=== PATIENT | female | born 1990 ===

== ENCOUNTER 2025-02-06 10:21 | Outpatient (AMB) | payer OTHER, SELFPAY ==
--- NOTE | 2025-02-06 10:26 | MHC.PC.OV ---
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 Accompanied by: Self / Same As Patient Allergies No Known Allergies Allergy (Verified 02/06/25 10:46) Tobacco use date assessed: 02/06/25 Dental Screening Dental Screen Date: 02/06/25 Did you have a dental visit in the last 12 months?: Yes Did you have a dental problem in the last 6 months where you did not have access to dental care?: No Was dental information given to patient?: Patient has dentist HPI establish care HPI Details [facility] PCP:[facility] Last visit: 2022 Last PE: 2022 Specialist: PRISCILA, was seeing mental health counselor O[facility]YN: [facility] Past medical history: Endometriosis, depression and anxiety Medications: IUD Family HX: Problem: The patient is a 34-year-old female presenting with right hip pain. The right hip pain has been present for approximately two to three months, coinciding with cessation of gym activities and a back injury. The pain is described as an ache and a dull burn, sometimes radiating to the mid-hamstring area. The patient works at [employer], involving frequent lifting, which may contribute to the pain. The patient has a history of endometriosis, depression, and anxiety, with intermittent counseling for mental health issues. She has not seen a therapist or psychologist in years but plans to reconnect with a previous counselor. The patient reports constipation, which occurs sporadically and is sometimes associated with pain during bowel movements. She has not seen a traffic maintenance officer since childhood, despite a history of polyps and lactose intolerance. Pain in mid abdomen just below umbilicus with palpation. There is a significant family history of colon cancer on the paternal side, with her father, aunt, and uncle affected. Her father was diagnosed with aggressive genetic cancer, and her grandfather of esophageal cancer. Her father passed at age 54 with colon cancer. The patient also experiences ear discomfort, characterized by itching and scabbing, with recent wax buildup. [facility] Medical History Endometriosis Depression Anxiety Surgical History Status post laparoscopic surgery Family History Mother Age: 61 Diabetes High cholesterol Fatty liver Arthritis Father Hypertension Colon cancer Social History Household Members: Spouse Housing: House Alcohol intake: current Patient Tobacco Use Status: Never used Tobacco e-Cigarette/Vaping Use: Never Used service: No Current occupational status: employed Current occupation: [employer] Cognitive needs: No Hearing needs: No Vision needs: No Questionnaire PHQ-9 Over the last 2 weeks, how often have you been bothered by any of the following problems? 1. Little interest or pleasure in doing things: not at all 2. Feeling down, depressed, or hopeless: several days 3. Trouble falling or staying asleep, or sleeping too much: several days 4. Feeling tired or having little energy: several days 5. Poor appetite or overeating: not at all 6. Feeling bad about yourself - or that you are a failure or have let yourself or your family down: not at all 7. Trouble concentrating on things, such as reading the newspaper or watching television: several days 8. Moving or speaking so slowly that other people could have noticed. Or the opposite - being so fidgety or restless that you have been moving around a lot more than usual: not at all 9. Thoughts that you would be better off or of hurting yourself in some way: several days Total score: 5 Depression Screening Interpretation: Positive Depression Screening Done: Yes 75027 - PHQ-9 Billing: Yes Source: Developed by Drs. Mervin Gomez, Evelina Alcaraz, Néstor Khan and colleagues, with an educational hang from [employer]. Thrive Questionnaire Date Thrive assessed: 02/06/25 I am a: Patient What is your living situation today?: I have a steady place to live Within the past 12 months, did the food you bought not last and you didn't have the money to get more?: Sometimes True Within the past 12 months, did you worry whether your food would run out before you got money to buy more?: Sometimes True Do you have trouble paying for medicines?: No Do you have trouble getting transportation to medical appointments?: No Do you have trouble paying your heating and electricity bill?: No Do you have trouble taking care of your child, family member or friend?: No Do you have trouble with day-to-day activities such as bathing, preparing meals, shopping, managing finances, etc.?: No Are you currently unemployed and looking for a job?: No Are you interested in more education?: Yes Please select the resources that you would like help with: None Currently or been in a relationship where the following occur: I choose not to answer THRIVE Score: 2 AUDIT C Alcohol Use Questionnaire (AUDIT-C) 1. How often do you have a drink containing alcohol?: Monthly or less 2. How many drinks containing alcohol do you have on a typical day when you are drinking?: 1 or 2 3. How often do you have six or more drinks on one occasion?: Never Total Score: 1 ADELAIDE-7 AMB Questionnaire ADELAIDE-7 Date ADELAIDE - 7 assessed: 02/06/25 Feeling nervous, anxious, or on edge: 1 = Several days Not being able to stop or control worryin = Several days Worrying too much about different things: 2 = More than half the days Trouble relaxin = Several days Being so restless that it is hard to sit still: 0 = Not at all Becoming easily annoyed or irritable: 1 = Several days Feeling afraid as if something awful might happen: 1 = Several days Total ADELAIDE-7 score (0-4 normal; 5-9 mild; 10-14 moderate; 15-21 severe): 7 Source: Developed by Drs. Mervin Gomez, Evelina Alcaraz, Néstor Khan and colleagues, with an educational hang from [employer]. ADELAIDE-7 Assessment Billing ADELAIDE-7 Assessment Tool: ADELAIDE-7 Assessment 70856 Review of Systems Const Denies headache(s) Eyes Denies loss of vision ENT Denies vertigo, Denies dizziness, Denies headache(s), Denies sore throat and Reports other (Left ear itchiness and recurrent cerumen buildup) Card Denies chest pain, Denies leg edema, Denies lightheadedness and Reports dyspnea (Associated with fumes at work) Resp Denies cough, Denies hemoptysis, Reports dyspnea (Associated with fumes at work) and Denies wheezing GI Denies abdominal pain, Denies melena, Reports constipation (Sporadic), Denies diarrhea, Denies vomiting and Reports other (Anal pain intermittently) Denies urinary frequency, Denies dysuria and Denies urinary urgency Musc Reports arthralgias (right hip), Denies joint swelling, Denies numbness, Reports radiating pain into limb (posterior leg) and Denies tingling Neuro Denies Abnormal speech present, Denies behavioral changes, Denies vertigo, Denies dizziness, Denies headache(s), Denies loss of vision, Denies memory loss, Denies numbness and Denies tingling Psych Reports anxiety, Denies behavioral changes, Reports depression, Denies memory loss and Denies panic attacks Mateo/Lymph Denies easy bleeding and Denies easy bruising Aller/Immun Denies wheezing Physical exam (Primary Care) Vital Signs: Last Vital Signs Temp 97.5 F 02/06/25 10:27 Pulse 77 02/06/25 10:27 Resp 18 02/06/25 10:27 BP 90/62 02/06/25 10:27 Pulse Ox 98 02/06/25 10:27 Oxygen Delivery Method Room Air 02/06/25 10:27 BMI result Body Mass Index 23.9 Tobacco/Smoking Status: Tobacco use Status Tobacco use date assessed 02/06/25 02/06/25 10:38 Patient Tobacco Use Status Never used Tobacco 02/06/25 10:38 e-Cigarette/Vaping Use Never Used 02/06/25 10:38 PHQ-9: PHQ-9 Score PHQ-9: Total score 5 02/06/25 13:25 Depression Screening Interpretation: Positive Thrive Assessment: Date of Thrive Assessment Date Thrive assessed 02/06/25 02/06/25 10:38 Currently or been in a relationship where the following occur: I choose not to answer Const General: healthy appearing, no acute distress, alert and awake Nutritional Appearance: well nourished Orientation/consciousness: oriented to person, oriented to place and oriented to time HENMT Ears: TM's normal bilaterally General nose exam: Normal nasal mucous membranes and turbinates present Eyes Conjunctivae: conjunctivae normal Sclerae: sclerae normal Pupils: Equal, round and reactive pupils present Neck Neck: Yes no lymphadenopathy and Yes no JVD Thyroid: Thyroid normal Carotids: no bruits Resp Effort & Inspection: normal respiratory effort and not tachypneic Auscultation: no crackles, no rales, no rhonchi and no wheezes Cardio Rate: regular rate Rhythm: regular rhythm Heart sounds: no murmurs and normal S1 and S2 GI Palpation (GI): Soft to palpation, Tenderness to palpation present (GI) periumbilically, no hepatomegaly and no splenomegaly Auscultation: normal bowel sounds General: Yes no CVA tenderness Back/Spine/Pelvis Back: no CVA tenderness Skin General skin exam: dry skin Neuro General: oriented to person, oriented to place and oriented to time Cranial nerves: Yes Equal, round and reactive pupils present Speech: No Abnormal speech present Gait exam (Neuro): Normal gait present Motor exam (neuro): no tremor noted Extrem Right upper extremity: full ROM Left upper extremity: full ROM Right lower extremity: full ROM and hip/thigh Details: no tenderness and no swelling; no edema Left lower extremity: full ROM; no edema Psych Mental Status: mental status grossly normal Speech and movement: Normal speech and movement present Affect: normal affect Attitude: cooperative Thought process: Normal thought process present Coding Level of Care Code New Pt Level 4 (22381) Diagnoses Right hip pain M25.551 Constipation, unspecified constipation type K59.00 Constipation type: unspecified constipation type Abdominal pain, unspecified abdominal location R10.9 Abdominal location: unspecified location Dyspnea, unspecified type R06.00 Dyspnea type: unspecified Anxiety and depression F41.9; F32.A Excessive cerumen in left ear canal H61.22 Additional Codes ADELAIDE-7 Assessment Billing - ADELAIDE-7 Assessment Tool: ADELAIDE-7 Assessment 00749 ([id number]) PHQ-9 - 57429 - PHQ-9 Billing: Yes ([id number]) Time Spent (min) 41 Assessment & Plan Assessment & Plan (1) Right hip pain: Code(s): M25.551 - Pain in right hip Category: Medical Plan: Right hip pain that radiates to posterior leg down to the hamstring. Reports hx of needing alignment. Will refer the patient to PT (2) Constipation: Code(s): K59.00 - Constipation, unspecified Category: Medical Qualifiers: Constipation type: unspecified constipation type Qualified Code(s): K59.00 - Constipation, unspecified Plan: Reports sporadic constipation. Encouraged increasing fluids and fiber in the diet. Reports going drinking 2-3 16 oz bottles of water. 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 She works at [employer] and they vasquez the car indoors and even after turning off the cars she could still smell the fumes. Other andersen, she does not get sob, encouraged avoiding irritants. (5) Anxiety and depression: Code(s): F41.9 - Anxiety disorder, unspecified; F32.A - Depression, unspecified Category: Medical Plan: Reports that she had a counselor and is in the process of getting a new one. Denies si/hi (6) Excessive cerumen in left ear canal: Code(s): H61.22 - Impacted cerumen, left ear Category: Medical Plan: The patient will start using debrox ear drops and schedule appt for ear flushing Orders: Orders UA CC w/rflx Micro + Cult Today Z00.00 - Encounter for general adult medical examination without abnormal findings CRP High Sensitivity Today Z00.00 - Encounter for general adult medical examination without abnormal findings PT Evaluation and Treatment Today M25.551 - Pain in right hip Complete Blood Count Auto Diff Today Z00.00 - Encounter for general adult medical examination without abnormal findings Comprehensive [place]. Panel Fast Today Z00.00 - Encounter for general adult medical examination without abnormal findings Lipid Panel Today Z00.00 - Encounter for general adult medical examination without abnormal findings TSH reflex Free T4 Today Z00.00 - Encounter for general adult medical examination without abnormal findings Vitamin D 25-OH Total Today Z00.00 - Encounter for general adult medical examination without abnormal findings Erythrocyte Sedimentation Rate Today Z00.00 - Encounter for general adult medical examination without abnormal findings US abdomen complete Today K59.00 - Constipation, unspecified, K62.89 - Other specified diseases of anus and rectum, R10.9 - Unspecified abdominal pain, Z80.0 - Family history of malignant neoplasm of digestive organs Referrals Gastroenterology Referral K59.00 - Constipation, unspecified, K62.89 - Other specified diseases of anus and rectum, R10.9 - Unspecified abdominal pain, Z80.0 - Family history of malignant neoplasm of digestive organs
[2025-02-06 10:27] VITALS: BP 90/62; PULSE 77; RESP 18; TEMP 36.4; O2SAT 98; BMI 23.9
--- OUTSIDE RECORDS SUMMARY | 2025-02-06 13:33 | XMS_ITS ---
Author Name [facility] Organization Unknown Results Test Name/Text Value Interpretation Date Range Source T.PALLIDUM AB Negative Normal 03/06/2024 - [facility] MM HEPATITIS C ANTIBODY NONREACTIVE Normal 02/29/2024 - [facility] HIV AB/P24 AG REFLEX W.BLOT Non Reactive [facility] W/CONFIRM NONREACTIVE Normal 024 - [facility] C TRACHOMATIS SWAB NEGATIVE Normal 02/26/2024 - [facility] N GONORRHOEAE SWAB NEGATIVE Normal 02/26/2024 - [facility] Problems Problem Status Onset Date Problem Type Date of Resoluti on Source Trapezius muscle spasm active EncounterDiagnosisAct CCT Encounters Encounter Type Encounter Reason Primary Diagnosis Location Date Ambulatory [facility] 02/29/2024 Ambulatory [facility] 02/25/2024 Ambulatory Neck Pain [facility] 09/20/2023 Care Team Organization Name Specialty Phone Email Start Date End Da te [facility] No provided Primary Care 03/14/2024 [facility] provided,No Primary Care 03/02/2024 06/02/2024 [facility] No provided Primary Care 02/29/2024 [facility] provided,No Primary Care 02/26/2024 06/24/2024 [facility] 09/20/2023 08/09/2024 [facility] 09/20/2023
== END 2025-02-06 11:33 | disposition home or self-care (01) ==
LOC: HO.HMCH 10:23
DX: M25.551 Pain in right hip (principal); K59.00 Constipation, unspecified; R10.9 Unspecified abdominal pain; R06.00 Dyspnea, unspecified; F41.9 Anxiety disorder, unspecified; F32.A Depression, unspecified; H61.22 Impacted cerumen, left ear

== ENCOUNTER → 2025-02-06 10:21 | Outpatient (BNVA) | payer OTHER, SELFPAY | DX: M25.551 Pain in right hip (principal); K59.00 Constipation, unspecified; R10.9 Unspecified abdominal pain; R06.00 Dyspnea, unspecified; F41.9 Anxiety disorder, unspecified; F32.A Depression, unspecified; H61.22 Impacted cerumen, left ear; K62.89 Other specified diseases of anus and rectum | CPT/HCPCS: 96127 ==

== ENCOUNTER 2025-02-27 09:37 | Outpatient (REF) | payer OTHER, SELFPAY ==
[2025-02-27 09:59] LABS: MANUAL DIFF FLAG NO
[2025-02-27 10:36] LABS: Hematocrit 37.8 % (37.0-47.0); Hemoglobin 13.1 g/dl (12.0-16.0); Imm Gran Abs Auto 0.02 X10*3/uL (0.00-0.03); Imm Gran Pct Auto 0.4 % (0.0-0.4); Lymphocytes Absolute Auto 2.3 X10*3/uL (1.2-4.9); Mean Corpuscular HGB Conc 34.7 g/dl (31.0-35.0); Mean Corpuscular Hemoglobin 30.5 pg (27.0-33.0); Mean Corpuscular Volume 87.9 fL (80.0-98.0); NRBC Abs Auto 0.000 X10*3/uL (0.0-0.012); NRBC Pct Auto 0.0 /100WBC (0.0-0.2); Platelet Count 263 X10*3/uL (160-400); Red Blood Count 4.30 X10*6/uL (4.20-5.50); White Blood Count 5.7 X10*3/uL (4.8-10.8)
[2025-02-27 10:43] LABS: Appearance Urine Clear; Glucose Urine UA Negative (Negative); PH 6.5 (5.0-9.0); Specific Gravity - Urine <= 1.005 (1.005-1.025)
[2025-02-27 11:22] LABS: Alanine Aminotransferase 14 U/L (0-31); Albumin Level 4.4 g/dL (3.5-5.0); Alkaline Phosphatase 43 U/L (39-117); Anion Gap 10 (12-20); Aspartate Amino Transferase 21 U/L (5-31); Blood Urea Nitrogen 13 mg/dL (9-16); Calcium 8.4 mg/dL (8.4-10.2); Carbon Dioxide 25 mmol/L (22-29); Chloride 108 mmol/L (96-108); Cholesterol 158 mg/dL (<200); Estimated Glomerular Filt Rate > 60; HDL Cholesterol 55 mg/dL (>40); Potassium 4.1 mmol/L (3.3-5.1); Sodium 139 mmol/L (135-145); Total Protein 7.3 g/dL (6.5-8.0); Triglycerides 29 mg/dL (<150)
== END 2025-02-27 09:38 | disposition home or self-care (01) ==
LOC: HO.LAB 09:37
DX: Z00.00 Encounter for general adult medical examination without abnormal findings (principal); Z13.6 Encounter for screening for cardiovascular disorders; Z13.0 Encounter for screening for diseases of the blood and blood-forming organs and certain disorders involving the immune mechanism
CPT/HCPCS: 36415; 80053; 80061; 81003; 82306; 84443; 85025; 85652; 86141

== ENCOUNTER 2025-03-16 14:28 | Outpatient (REF) | payer OTHER, SELFPAY ==
--- NOTE | ~2025-03-16 | US_ITS ---
EXAMINATION: US ABDOMEN COMPLETE CLINICAL INFORMATION: Unspecified abdominal pain.. COMPARISON: None available. TECHNIQUE: Real-time imaging of the abdominal viscera. FINDINGS: PANCREAS: Visualized portions are unremarkable. ABDOMINAL AORTA: The proximal, mid, and distal segments are normal in caliber. INFERIOR VENA CAVA: Visualized portions are normal. LIVER: The liver is normal in size. Right hepatic lobe measures 12.5 cm. The liver contour is normal. Parenchymal echogenicity is normal. No focal hepatic lesion. There is no intrahepatic biliary duct dilatation seen. GALLBLADDER: The gallbladder is physiologically distended without evidence of stones, sludge, polyps, wall thickening or pericholecystic fluid. COMMON BILE DUCT: Normal in caliber measuring 0.3 cm in diameter. RIGHT KIDNEY: No hydronephrosis. No renal calculi or focal parenchymal lesions. The kidney measures 9.8 cm in maximum dimension. LEFT KIDNEY: No hydronephrosis. No renal calculi or focal parenchymal lesions. The kidney measures 10.6 cm in maximum dimension. SPLEEN: The spleen measures 8.7 cm in maximum dimension. FREE FLUID: None. US/US abdomen complete IMPRESSION: Normal abdominal ultrasound. Electronically signed by: Jame Prince MD 03/16/2025 03:11 PM EDT
== END 2025-03-16 14:29 | disposition home or self-care (01) ==
LOC: HO.US 14:28
DX: R10.9 Unspecified abdominal pain (principal); K59.00 Constipation, unspecified; K62.89 Other specified diseases of anus and rectum; Z80.0 Family history of malignant neoplasm of digestive organs
CPT/HCPCS: 76700

== ENCOUNTER → 2025-03-16 14:32 | Outpatient (BNV) | payer OTHER, SELFPAY | PROVIDERS: Visit Provider Radiology Diagnostic Radiology | DX: R10.9 Unspecified abdominal pain (principal) | CPT/HCPCS: 76700 ==

== ENCOUNTER 2025-03-27 08:26 | Outpatient (AMB) | payer OTHER, SELFPAY ==
[2025-03-27 08:31] VITALS: BP 102/64; PULSE 70; RESP 16; TEMP 36.6; O2SAT 99; BMI 24.4
--- NOTE | 2025-03-27 08:31 | MHC.PC.OV ---
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 Accompanied by: Self / Same As Patient Allergies No Known Allergies Allergy (Verified 03/27/25 08:43) Medication List - Last Reconciled 03/27/25 by ERMELINDA Werner No Known Home Meds Tobacco use date assessed: 03/27/25 Dental Screening Dental Screen Date: 03/27/25 Did you have a dental visit in the last 12 months?: Yes Did you have a dental problem in the last 6 months where you did not have access to dental care?: No Was dental information given to patient?: Patient has dentist HPI annual HPI Details Dentist: up to date Eye: one schedule in cover of weeks Snellen: Right: Left: Corrected vision: lasiks eye surgery, reports that it has been a little blurry STI screening: Colonoscopy: Pap Smer: up to date, last year, has not done her appt for this year as yet. [facility]ON[facility] PHQ-9: Flu: HAVE not in a couple of years COVID: x3 Tdap: given in office today Diet:regular Exercise:not recently PFSH Medical History Endometriosis Depression Anxiety Surgical History Status post laparoscopic surgery Family History Mother Age: 61 Diabetes High cholesterol Fatty liver Arthritis Father Hypertension Colon cancer Social History Household Members: Spouse Housing: House Alcohol intake: current Patient Tobacco Use Status: Never used Tobacco e-Cigarette/Vaping Use: Never Used service: No Current occupational status: employed Current occupation: [employer] Cognitive needs: No Hearing needs: No Vision needs: No Questionnaire PHQ-9 Over the last 2 weeks, how often have you been bothered by any of the following problems? 1. Little interest or pleasure in doing things: not at all 2. Feeling down, depressed, or hopeless: several days 3. Trouble falling or staying asleep, or sleeping too much: several days 4. Feeling tired or having little energy: several days 5. Poor appetite or overeating: not at all 6. Feeling bad about yourself - or that you are a failure or have let yourself or your family down: not at all 7. Trouble concentrating on things, such as reading the newspaper or watching television: several days 8. Moving or speaking so slowly that other people could have noticed. Or the opposite - being so fidgety or restless that you have been moving around a lot more than usual: not at all 9. Thoughts that you would be better off or of hurting yourself in some way: several days Total score: 5 Depression Screening Interpretation: Positive Depression Screening Done: Yes Source: Developed by Drs. Mervin Gomez, Evelina Alcaraz, Néstor Khan and colleagues, with an educational hang from [facility]. Thrive Questionnaire Date Thrive assessed: 03/27/25 I am a: Patient What is your living situation today?: I have a steady place to live Within the past 12 months, did the food you bought not last and you didn't have the money to get more?: Sometimes True Within the past 12 months, did you worry whether your food would run out before you got money to buy more?: Sometimes True Do you have trouble paying for medicines?: No Do you have trouble getting transportation to medical appointments?: No Do you have trouble paying your heating and electricity bill?: No Do you have trouble taking care of your child, family member or friend?: No Do you have trouble with day-to-day activities such as bathing, preparing meals, shopping, managing finances, etc.?: No Are you currently unemployed and looking for a job?: No Are you interested in more education?: Yes Please select the resources that you would like help with: None Currently or been in a relationship where the following occur: I choose not to answer THRIVE Score: 2 AUDIT C Alcohol Use Questionnaire (AUDIT-C) 1. How often do you have a drink containing alcohol?: Monthly or less 2. How many drinks containing alcohol do you have on a typical day when you are drinking?: 1 or 2 3. How often do you have six or more drinks on one occasion?: Never Total Score: 1 ADELAIDE-7 AMB Questionnaire ADELAIDE-7 Date ADELAIDE - 7 assessed: 03/27/25 Feeling nervous, anxious, or on edge: 1 = Several days Not being able to stop or control worryin = Several days Worrying too much about different things: 2 = More than half the days Trouble relaxin = Several days Being so restless that it is hard to sit still: 0 = Not at all Becoming easily annoyed or irritable: 1 = Several days Feeling afraid as if something awful might happen: 1 = Several days Total ADELAIDE-7 score (0-4 normal; 5-9 mild; 10-14 moderate; 15-21 severe): 7 Source: Developed by Drs. Mervin Gomez, Evelina Alcaraz, Néstor Khan and colleagues, with an educational hang from [facility]. ADELAIDE-7 Assessment Billing ADELAIDE-7 Assessment Tool: ADELAIDE-7 Assessment 69332 Review of Systems Const Denies headache(s) Eyes Denies loss of vision ENT Denies vertigo, Denies dizziness, Denies headache(s), Denies sore throat and Reports other (Left ear itchiness and recurrent cerumen buildup) Card Denies chest pain, Denies leg edema, Denies lightheadedness and Reports dyspnea (Associated with fumes at work) Resp Denies cough, Denies hemoptysis, Reports dyspnea (Associated with fumes at work) and Denies wheezing GI Denies abdominal pain, Denies melena, Reports constipation (Sporadic), Denies diarrhea, Denies vomiting and Reports other (Anal pain intermittently) Denies urinary frequency, Denies dysuria and Denies urinary urgency Musc Reports arthralgias (right hip), Denies joint swelling, Denies numbness, Reports radiating pain into limb (posterior leg) and Denies tingling Neuro Denies Abnormal speech present, Denies behavioral changes, Denies vertigo, Denies dizziness, Denies headache(s), Denies loss of vision, Denies memory loss, Denies numbness and Denies tingling Psych Reports anxiety, Denies behavioral changes, Reports depression, Denies memory loss and Denies panic attacks Mateo/Lymph Denies easy bleeding and Denies easy bruising Aller/Immun Denies wheezing Physical exam (Primary Care) Vital Signs: Last Vital Signs Temp 97.9 F 03/27/25 08:31 Pulse 70 03/27/25 08:31 Resp 16 03/27/25 08:31 BP 102/64 03/27/25 08:31 Pulse Ox 99 03/27/25 08:31 Oxygen Delivery Method Room Air 03/27/25 08:31 BMI result Body Mass Index 24.4 Tobacco/Smoking Status: Tobacco use Status Tobacco use date assessed 03/27/25 03/27/25 08:34 Patient Tobacco Use Status Never used Tobacco 03/27/25 08:34 e-Cigarette/Vaping Use Never Used 03/27/25 08:34 PHQ-9: PHQ-9 Score PHQ-9: Total score 5 03/27/25 08:46 Depression Screening Interpretation: Positive Thrive Assessment: Date of Thrive Assessment Date Thrive assessed 03/27/25 03/27/25 08:34 Currently or been in a relationship where the following occur: I choose not to answer Const General: healthy appearing, no acute distress, alert and awake Nutritional Appearance: well nourished Orientation/consciousness: oriented to person, oriented to place and oriented to time HENMT Ears: TM's normal bilaterally General nose exam: Normal nasal mucous membranes and turbinates present Eyes Conjunctivae: conjunctivae normal Sclerae: sclerae normal Pupils: Equal, round and reactive pupils present Neck Neck: Yes no lymphadenopathy and Yes no JVD Thyroid: Thyroid normal Carotids: no bruits Resp Effort & Inspection: normal respiratory effort and not tachypneic Auscultation: no crackles, no rales, no rhonchi and no wheezes Cardio Rate: regular rate Rhythm: regular rhythm Heart sounds: no murmurs and normal S1 and S2 GI Palpation (GI): Soft to palpation, Tenderness to palpation present (GI) periumbilically, no hepatomegaly and no splenomegaly Auscultation: normal bowel sounds General: Yes no CVA tenderness Back/Spine/Pelvis Back: no CVA tenderness Skin General skin exam: dry skin Neuro General: oriented to person, oriented to place and oriented to time Cranial nerves: Yes Equal, round and reactive pupils present Speech: No Abnormal speech present Gait exam (Neuro): Normal gait present Motor exam (neuro): no tremor noted Deep tendon reflexes (DTR's): Right triceps reflex intensity grade: 2+, Left triceps reflex intensity grade: 2+, Rt Biceps (C5, C6): 2+, Left biceps reflex intensity grade: 2+, Right brachioradialis reflex intensity grade: 2+, Left brachioradialis reflex intensity grade: 2+, Right patellar reflex intensity grade: 2+ and Left patellar reflex intensity grade: 2+ Extrem Right upper extremity: full ROM Left upper extremity: full ROM Right lower extremity: full ROM and hip/thigh Details: no tenderness and no swelling; no edema Left lower extremity: full ROM; no edema Psych Mental Status: mental status grossly normal Speech and movement: Normal speech and movement present Affect: normal affect Attitude: cooperative Thought process: Normal thought process present Immunizations Tenivac (PF) 5 Lf unit-2 Lf unit/0.5 mL intramuscular suspension Performing Provider: ERMELINDA Werner [facility] Administered by: Angie Gifford CMA on 03/27/25 08:56 Dose Route Admin Location Dispensed Lot Number Expiration Date [facility] On Site Manager 0.5 mL IM Left Deltoid 0.5 mL [id number] 08/22/26 [id number] [employer] Total Dispensed Waste 0.5 mL 0 % VIS Given Date VIS Provided VIS Publication Date 03/27/25 Single Vaccine 20 Eligibility Eligibility Date Funding Source Not [facility] Eligible 03/27/25 Private Results Reviewed Results Reviewed: Laboratory Tests 02/27/25 02/27/25 09:52 09:57 WBC 5.7 RBC 4.30 Hgb 13.1 Hct 37.8 MCV 87.9 MCH 30.5 MCHC 34.7 RDW 12.3 Plt Count 263 Sodium 139 Potassium 4.1 Chloride 108 Carbon Dioxide 25 Anion Gap 10 L BUN 13 Creatinine 0.68 Estimated GFR > 60 Fasting Glucose 83 Calcium 8.4 Total Bilirubin 0.6 AST 21 ALT 14 Alkaline Phosphatase 43 C-React Prot High Sens 0.6 Total Protein 7.3 Albumin 4.4 Triglycerides 29 Cholesterol 158 LDL Cholesterol, Calc 98 HDL Cholesterol 55 25-OH Vitamin D Total 32.1 TSH 0.56 Urine Color Yellow Urine Appearance Clear Urine pH 6.5 Ur Specific [place] <= 1.005 Urine Protein Negative Urine Glucose (UA) Negative Urine Ketones Negative Urine Blood Negative Urine Nitrite Negative Ur Leukocyte Esterase Negative Coding Level of Care Code Est Pt Prev Care 18-39y([id number]) Diagnoses Annual physical exam Z00.00 Right hip pain M25.551 Constipation, unspecified constipation type K59.00 Constipation type: unspecified constipation type Abdominal pain, unspecified abdominal location R10.9 Abdominal location: unspecified location Dyspnea, unspecified type R06.00 Dyspnea type: unspecified Anxiety and depression F41.9; F32.A Excessive cerumen in left ear canal H61.22 Additional Codes ADELAIDE-7 Assessment Billing - ADELAIDE-7 Assessment Tool: ADELAIDE-7 Assessment 06896 ([id number]) Time Spent (min) 36 Assessment & Plan Assessment & Plan (1) Annual physical exam: Code(s): Z00.00 - Encounter for general adult medical examination without abnormal findings Category: Medical Plan: Preventative guidelines and recent labs reviewed with the patient. TD given in office today. (2) Right hip pain: Code(s): M25.551 - Pain in right hip Category: Medical Plan: Right hip pain that radiates to posterior leg down to the hamstring. Reports hx of needing alignment. The patient was referred to PT. (3) Constipation: Code(s): K59.00 - Constipation, unspecified Category: Medical Qualifiers: Constipation type: unspecified constipation type Qualified Code(s): K59.00 - Constipation, unspecified Plan: Reports sporadic constipation. Encouraged increasing fluids and fiber in the diet. Reports going drinking 2-3 16 oz bottles of water. (4) Abdominal pain: Code(s): R10.9 - Unspecified abdominal pain Category: Medical Qualifiers: Abdominal location: unspecified location Qualified Code(s): R10.9 - Unspecified abdominal pain Plan: Abdominal ultrasound normal. Patient has a history of endometriosis status post surgery many years ago. Still has discomfort below umbilicus intermittently-reports that his sometime it is around the time of her menses. 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 She works at [employer] and they vasquez the car indoors and even after turning off the cars she could still smell the fumes. Other andersen, she does not get sob, encouraged avoiding irritants. (6) Anxiety and depression: Code(s): F41.9 - Anxiety disorder, unspecified; F32.A - Depression, unspecified Category: Medical Plan: Reports that she had a counselor and is in the process of getting a new one. Denies si/hi We will continue to monitor (7) Excessive cerumen in left ear canal: Code(s): H61.22 - Impacted cerumen, left ear Category: Medical Plan: The patient will start using debrox ear drops and schedule appt for ear flushing. Orders: Orders UA CC w/rflx Micro + Cult 1 Year F32.A - Depression, unspecified, F41.9 - Anxiety disorder, unspecified, R10.9 - Unspecified abdominal pain, Z00.00 - Encounter for general adult medical examination without abnormal findings Complete Blood Count Auto Diff 1 Year F32.A - Depression, unspecified, F41.9 - Anxiety disorder, unspecified, R10.9 - Unspecified abdominal pain, Z00.00 - Encounter for general adult medical examination without abnormal findings Comprehensive [place]. Panel Fast 1 Year F32.A - Depression, unspecified, F41.9 - Anxiety disorder, unspecified, R10.9 - Unspecified abdominal pain, Z00.00 - Encounter for general adult medical examination without abnormal findings Lipid Panel 1 Year F32.A - Depression, unspecified, F41.9 - Anxiety disorder, unspecified, R10.9 - Unspecified abdominal pain, Z00.00 - Encounter for general adult medical examination without abnormal findings TSH reflex Free T4 1 Year F32.A - Depression, unspecified, F41.9 - Anxiety disorder, unspecified, R10.9 - Unspecified abdominal pain, Z00.00 - Encounter for general adult medical examination without abnormal findings Vitamin D 25-OH Total 1 Year F32.A - Depression, unspecified, F41.9 - Anxiety disorder, unspecified, R10.9 - Unspecified abdominal pain, Z00.00 - Encounter for general adult medical examination without abnormal findings Td Immunization Today Z23 - Encounter for immunization
== END 2025-03-27 09:06 | disposition home or self-care (01) ==
LOC: HO.HMCH 08:26
DX: Z23 Encounter for immunization (principal)

== ENCOUNTER → 2025-03-27 08:26 | Outpatient (BNVA) | payer OTHER, SELFPAY | DX: Z00.00 Encounter for general adult medical examination without abnormal findings (principal); M25.551 Pain in right hip; K59.00 Constipation, unspecified; R10.9 Unspecified abdominal pain; R06.00 Dyspnea, unspecified; F41.9 Anxiety disorder, unspecified; F32.A Depression, unspecified; H61.22 Impacted cerumen, left ear; Z23 Encounter for immunization | CPT/HCPCS: 90471; 90714; 96127 ==

== ENCOUNTER 2025-05-16 14:03 | Outpatient (REF) | payer OTHER, SELFPAY ==
[2025-05-16 15:33] LABS: Lipase 29 U/L (8-78)
[2025-05-16 16:42] LABS: Folate 11.3 ng/mL (> or = 4.0); Vitamin B12 626 pg/mL (200-900)
== END 2025-05-16 14:04 | disposition home or self-care (01) ==
LOC: HO.LAB 14:03
PROVIDERS: Visit Provider Nurse Practitioner Family
DX: K58.2 Mixed irritable bowel syndrome (principal); R15.9 Full incontinence of feces; R14.0 Abdominal distension (gaseous); R10.31 Right lower quadrant pain; Z80.0 Family history of malignant neoplasm of digestive organs
CPT/HCPCS: 36415; 82607; 82746; 83690; 86140; 86364

== ENCOUNTER 2025-05-16 14:03 | Outpatient (AMB) | payer OTHER, SELFPAY ==
--- NOTE | 2025-05-16 14:12 | MHC.OFFVIS ---
Vital Signs 05/16/25 14:13 Height 5 ft 2 in Weight 130 lb BMI 23.8 BP 110/66 Blood Pressure Location Lt brachial Position Sitting Pulse 88 Pulse Source Pulse Oximeter Pulse Oximetry (%) 99 Oxygen Delivery Method Room Air Intake Visit Reasons: abdominal pain, constipation Intake Note: New pt for initial eval of abd pain and CIC. Overdue for colo. See bulletin board. CC; C/O CIC, intermittent nausea, and umbilical pain. Pt also reports hx of endometriosis and has occasional RLQ pain but believes this is related to that condition. No additional sx or concerns. Data Entry Processor Required: No Accompanied by: Self / Same As Patient Allergies No Known Allergies Allergy (Verified 05/16/25 14:12) HPI HPI abdominal pain, constipation: Details: 34-year-old female with past medical history of abdominal pain constipation, family history of CRC is here today for initial consultation. Patient reports constipation that occurs frequently. Patient reports abdominal pain and cramping when she is constipated. Reports right lower quadrant pain specially around her menses. 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 Had colonoscopy done in the past. Patient has significant family history of colon cancer with her father and paternal aunt and uncle. Her father was diagnosed with aggressive cancer and at age 54 with colon cancer. Patient is grandfather of esophageal cancer. Patient denies melena, hematochezia, unintentional weight loss or ribbon like stools. Patient denies any dyspepsia, dysphagia or odynophagia. Reports severe abdominal bloating and pain around the umbilical area. Patient reports pain with palpation. [facility] Medical History Endometriosis Depression Anxiety Surgical History Status post laparoscopic surgery Family History Mother Age: 61 Diabetes High cholesterol Fatty liver Arthritis Father Hypertension Colon cancer Social History Household Members: Spouse Housing: House Alcohol intake: current Patient Tobacco Use Status: Never used Tobacco e-Cigarette/Vaping Use: Never Used service: No Current occupational status: employed Current occupation: [employer] Cognitive needs: No Hearing needs: No Vision needs: No Review of Systems Const Denies weight gain and Denies weight loss ENT Reports no additional complaints, Denies dysphagia and Denies odynophagia Card Reports no additional complaints Resp Reports no additional complaints GI Reports abdominal pain, Denies belching, Denies melena, Reports bloating, Denies change in bowel habits, Reports constipation, Denies dysphagia, Denies excessive flatus, Denies dyspepsia, Denies heartburn, Denies diarrhea, Denies loose stools, Denies nausea, Denies odynophagia and Denies vomiting Reports no additional complaints Musc Reports no additional complaints Neuro Reports no additional complaints Psych Reports no additional complaints Endo Reports no additional complaints Physical Exam Vital Signs: Last Vital Signs Pulse 88 05/16/25 14:13 BP 110/66 05/16/25 14:13 Pulse Ox 99 05/16/25 14:13 Oxygen Delivery Method Room Air 05/16/25 14:13 BMI result Body Mass Index 23.8 Const General: healthy appearing, no acute distress and well developed Nutritional Appearance: well nourished Orientation/consciousness: patient oriented x3 Resp Effort & Inspection: normal respiratory effort, able to speak in complete sentences, no tracheal deviation and symmetric chest movement Auscultation: clear to auscultation bilaterally Cardio Rate: regular rate GI Inspection: Yes normal to inspection and No distended Palpation (GI): Soft to palpation, not firm, nontender and No hepatosplenomegaly present Auscultation: normal bowel sounds General: Yes no CVA tenderness Back/Spine/Pelvis Back: no CVA tenderness Skin General skin exam: elasticity normal, turgor normal and dry skin Neuro General: patient oriented x3 Psych Appearance: grossly normal Mental Status: mental status grossly normal Results Reviewed Results Reviewed: ULTRASOUND OF ABDOMEN AND PELVIS FINDINGS: PANCREAS: Visualized portions are unremarkable. ABDOMINAL AORTA: The proximal, mid, and distal segments are normal in caliber. INFERIOR VENA CAVA: Visualized portions are normal. LIVER: The liver is normal in size. Right hepatic lobe measures 12.5 cm. The liver contour is normal. Parenchymal echogenicity is normal. No focal hepatic lesion. There is no intrahepatic biliary duct dilatation seen. GALLBLADDER: The gallbladder is physiologically distended without evidence of stones, sludge, polyps, wall thickening or pericholecystic fluid. COMMON BILE DUCT: Normal in caliber measuring 0.3 cm in diameter. RIGHT KIDNEY: No hydronephrosis. No renal calculi or focal parenchymal lesions. The kidney measures 9.8 cm in maximum dimension. LEFT KIDNEY: No hydronephrosis. No renal calculi or focal parenchymal lesions. The kidney measures 10.6 cm in maximum dimension. SPLEEN: The spleen measures 8.7 cm in maximum dimension. FREE FLUID: None. US/US abdomen complete IMPRESSION: Normal abdominal ultrasound. Laboratory Tests 02/27/25 09:57 Total Bilirubin 0.6 AST 21 ALT 14 Alkaline Phosphatase 43 C-React Prot High Sens 0.6 Triglycerides 29 Cholesterol 158 LDL Cholesterol, Calc 98 HDL Cholesterol 55 25-OH Vitamin D Total 32.1 TSH 0.56 Assessment & Plan Assessment & Plan (1) Family history of colon cancer: Code(s): Z80.0 - Family history of malignant neoplasm of digestive organs Category: Medical (2) Constipation: Code(s): K59.00 - Constipation, unspecified Category: Medical Qualifiers: Constipation type: unspecified constipation type Qualified Code(s): K59.00 - Constipation, unspecified (3) Abdominal pain: Code(s): R10.9 - Unspecified abdominal pain Category: Medical Qualifiers: Abdominal location: unspecified location Qualified Code(s): R10.9 - Unspecified abdominal pain (4) Postprandial abdominal bloating: Code(s): R14.0 - Abdominal distension (gaseous) Plan Will check transglutaminase, lipase, vitamin B12 and folate. Will check fecal calprotectin in CRP. Patient will be sent for colonoscopy. Message sent to surgical schedulers to colonoscopy for patient. Patient will start taking Dulcolax daily. What to expect before during and after procedure discussed with patient. Stressed the importance of good bowel prep in clear liquid diet. I will see her in 3 months or right after the procedure. Patient is agreeable to current plan of care and verbalizes understanding of instructions. She was given the opportunity to ask questions and all questions answered. Thank you for allowing me to participate in her care Orders: Orders Transglutaminase IgA 05/16/25 R10.9 - Unspecified abdominal pain Lipase 05/16/25 R10.9 - Unspecified abdominal pain Vitamin B12 and Folate 05/16/25 R19.7 - Diarrhea, unspecified Calprotectin, Fecal 05/16/25 R15.9 - Full incontinence of feces C Reactive Protein 05/16/25 K58.9 - Irritable bowel syndrome, unspecified Referrals GI Procedure Notification Z12.11 - Encounter for screening for malignant neoplasm of colon, Z80.0 - Family history of malignant neoplasm of digestive organs Medications: New polyethylene glycol 3350 (Miralax) As directed by gastroenterology department at [facility] 238 grams PO ONCE 238 grams 0RF Z12.11 - Encounter for screening for malignant neoplasm of colon bisacodyl (Dulcolax (bisacodyl)) 10 mg (2 x 5 mg) PO BEDTIME 180 tabs 4RF Coding Level of Care Code New Pt Level 4 (66211) Diagnoses Family history of colon cancer Z80.0 Constipation, unspecified constipation type K59.00 Constipation type: unspecified constipation type Abdominal pain, unspecified abdominal location R10.9 Abdominal location: unspecified location Postprandial abdominal bloating R14.0 Time Spent (min) 50 Comment 35 minutes spent with patient and additional 15 minutes spent reviewing her records
[2025-05-16 14:13] VITALS: BP 110/66; PULSE 88; O2SAT 99; BMI 23.8
== END 2025-05-16 14:37 | disposition home or self-care (01) ==
LOC: HO.HGI 14:04
PROVIDERS: Visit Provider Nurse Practitioner Family
DX: Z80.0 Family history of malignant neoplasm of digestive organs (principal); K59.00 Constipation, unspecified; R10.9 Unspecified abdominal pain; R14.0 Abdominal distension (gaseous)
CPT/HCPCS: 99204